=== PATIENT | female | born 1970 | race Caucasian/White ===

== ENCOUNTER 2025-05-14 14:10 | Emergency (ER) | payer BC ==
[~2025-05-14] VITALS: Ht 162.6 cm; Wt 72.6 kg
[2025-05-14 15:44] LABS: PLATELET COUNT (AUTO) 230 K/uL (150-450); RED BLOOD CELL COUNT(AUTO) 4.76 MIL/uL (4.0-5.2); RED CELL DISTRIBUTION WIDTH 13.7 % (11.5-15.0); WHITE BLOOD COUNT (AUTO) 11.6 K/uL (4.3-11.0)
[2025-05-14 15:54] LABS: CALCIUM, SERUM 9.0 mg/dL (8.5-10.1); CREATININE 0.5 mg/dL (0.6-1.3); SODIUM SERUM 132.0 mmol/L (136-145); UREA NITROGEN, BLOOD 10.0 mg/dL (7-18)
[2025-05-14] MEDS ORDERED: DOCU-141 PO (15:56)
[2025-05-14] MEDS ORDERED: CIPR500T5 PO (15:56)
[2025-05-14] MEDS ORDERED: METR500T PO (15:56)
[2025-05-14 15:59] LABS: ASPARTATE AMINOTRANSFERASE 36.0 U/L (15-37); TOTAL PROTEIN, SERUM 7.1 g/dL (6.4-8.2)
[2025-05-14] MEDS ORDERED: METRONIDAZOLE 500 MG TABLET ONE (16:01)
[2025-05-14] MEDS ORDERED: CIPROFLOXACIN HCL 500 MG TABLET ONE (16:01)
[2025-05-14] MEDS: CIPROFLOXACIN HCL 250 MG TABLET PO ONE (16:06)
[2025-05-14] MEDS: METRONIDAZOLE 500 MG TABLET PO ONE (16:06)
[2025-05-14 16:08] VITALS: BP 120/96; TEMP 98.1; O2SAT 99
== END 2025-05-14 16:08 | disposition home or self-care (01) ==
LOC: ER 14:24
DX: R10.84 Generalized abdominal pain (principal); K59.00 Constipation, unspecified; K62.5 Hemorrhage of anus and rectum
CPT/HCPCS: 36415; 80048-TC; 80076-TC; 83690-TC; 85025-TC